=== PATIENT | male | born 1950 | race Caucasian/White ===

== ENCOUNTER 2018-07-22 15:38 | Inpatient (IN) | payer MEDICARE, BC ==
[~2018-07-22] VITALS: Ht 180.3 cm; Wt 116.2 kg
[2018-07-22 18:00] VITALS: BP 122/77
[2018-07-22] MEDS ORDERED: MOM 30ML SUSPENSION UDC PO PRN (19:15)
[2018-07-22 19:41] LABS: HEMATOCRIT 40.9 % (42.0-52.0); HEMOGLOBIN 13.2 g/dl (13.5-17.5); MEAN CORPUSCULAR HGB CONC 32.3 g/dl (32.0-36.5); MEAN CORPUSCULAR VOLUME 83.8 fl (80.0-96.0); PLATELET COUNT, AUTOMATED 196 10^3/uL (150-450); RED BLOOD COUNT 4.88 10^6/uL (4.30-6.10); WHITE BLOOD COUNT 7.6 10^3/uL (4.0-10.0)
[2018-07-22 19:52] LABS: INR 1.55; PROTHROMBIN TIME 18.8 SECONDS (12.1-14.4)
[2018-07-22 19:53] LABS: PARTIAL THROMBOPLASTIN TIME 33.2 SECONDS (25.4-37.6)
[2018-07-22 20:00] VITALS: BP 147/94
[2018-07-22 20:04] LABS: ALBUMIN 3.4 GM/DL (3.2-5.2); ALT/SGPT 38 U/L (12-78); BILIRUBIN,TOTAL 1.2 MG/DL (0.2-1.0); BLOOD UREA NITROGEN 24 MG/DL (7-18); CALCIUM LEVEL 8.6 MG/DL (8.8-10.2); CARBON DIOXIDE LEVEL 27 MEQ/L (21-32); CHLORIDE LEVEL 111 MEQ/L (98-107); CREATININE FOR GFR 1.23 MG/DL (0.70-1.30); GLOMERULAR FILTRATION RATE > 60.0 (>49); GLUCOSE, FASTING 178 MG/DL (70-100); POTASSIUM SERUM 4.1 MEQ/L (3.5-5.1); SODIUM LEVEL 145 MEQ/L (136-145); TOTAL PROTEIN 6.4 GM/DL (6.4-8.2)
[2018-07-22] MEDS ORDERED: SOTA80TA32 PO ×2 (20:04)
[2018-07-22] MEDS ORDERED: VASEGEL6 TOP (20:04)
[2018-07-22] MEDS ORDERED: ASPI-161 PO (20:04)
[2018-07-22] MEDS ORDERED: FLOM0.4C39 PO (20:04)
[2018-07-22] MEDS ORDERED: METF-882 PO (20:04)
[2018-07-22] MEDS ORDERED: VITMTA PO (20:04)
[2018-07-22] MEDS ORDERED: ATOR40TA75 PO (20:04)
[2018-07-22] MEDS ORDERED: PANT-23 PO (20:04)
[2018-07-22] MEDS ORDERED: DILT1CAP5 PO (20:04)
[2018-07-22] MEDS ORDERED: RAMI1CAP26 PO (20:04)
[2018-07-22] MEDS ORDERED: AMLO5TAB6 PO (20:04)
[2018-07-22] MEDS ORDERED: ADVI200T17 PO (20:04)
[2018-07-22] MEDS ORDERED: FURO40TA2 PO (20:04)
[2018-07-22] MEDS ORDERED: XARE20TA PO (20:04)
[2018-07-22] MEDS ORDERED: GLIP5TAB8 PO (20:04)
[2018-07-22] MEDS ORDERED: HEPARIN DRIP 25,000 UNITS in APPROPRIATE DILUENT 1 EA IV SCH ×2 (20:16→22:06)
[2018-07-22] MEDS ORDERED: HEPARIN SOD (PORCINE) 5000 UNITS/ML VIAL IV PRN ×2 (20:30→22:15)
[2018-07-22] MEDS ORDERED: HEPARIN SOD (PORCINE) 5000 UNITS/ML VIAL IV ONE (20:30)
--- NOTE | 2018-07-22 20:57 | HPEPDOC ---
General Date of Admission July 22, 2018 at 18:10 Date of Service: July 22, 2018 Attending Physician: MERNA MAZA MD Chief Complaint The patient is a 68-year-old male admitted with a reason for visit of [facility]. Source: Patient Exam Limitations: No limitations Timing/Duration: Day(s) Severity: Severe Associated Symptoms: Shortness of breath, Weakness, Hypotension, Dizziness History of Present Illness Patient is a 68-year-old male, past medical history significant for atrial fibrillation status post ablation 4/ 5 years ago, hypertension, hyperlipidemia, diabetes mellitus type 2, who presented to [facility] on account of shortness of breath and weakness. This morning patient had been walking his dogs when he said he started "huffing and puffing", and also was dizzy. He was not doing anything particularly strenuous. On return home he wanted to go to the drugstore to check his vitals with his girlfriend persuaded him to go to the emergency room instead. On arrival to the emergency room. Heart rate was 26 and patient was started on dobutamine drip. Prior to presentation to the ED, patient states a week ago he had been in atrial fibrillation with RVR for which he had seen his production utility worker and had been prescribed Cardizem in addition to the sotalol he was already on. He he thinks he may have taken his first dose last night. He is unsure. After his ablation years ago, patient reports this is the first occurrence of atrial fibrillation since. He denied any other symptoms with chest pain, chills, fever, abdominal pain, nausea, vomiting. He was transferred to this facility on account of sick sinus syndrome per evaluation by production utility worker and possible pac emaker placement. At time of evaluation his symptoms were resolved Home Medications Scheduled Amlodipine Besylate (Amlodipine Besylate) 5 Mg Tablet, 5 MG PO DAILY, (Reported) Aspirin (Aspirin EC) 81 Mg Tablet.dr, 81 MG PO DAILY, (Reported) Atorvastatin Calcium (Atorvastatin Calcium) 40 Mg Tablet, 40 MG PO QHS, (Reported) Diltiazem Hcl (Diltiazem 24Hr ER) 240 Mg Cap.sa.24h, 240 MG PO DAILY, (Reported) Glipizide (Glipizide) 5 Mg Tablet, 5 MG PO DAILY, (Reported) Metformin HCl (Metformin ER Osmotic) 1,000 Mg Tab.er.24, 1,000 MG PO QPM, (Reported) TAKES AT DINNERTIME Multivitamins (Thera M Plus Tablet) 1 Each Tablet, 1 TAB PO DAILY, (Reported) Pantoprazole Sodium (Pantoprazole Sodium) 40 Mg Tablet.dr, 40 MG PO DAILY, (Reported) Ramipril (Ramipril) 10 Mg Capsule, 20 MG PO DAILY, (Reported) Rivaroxaban (Xarelto) 20 Mg Tablet, 20 MG PO DAILY, (Reported) Sotalol HCl (Sotalol) 80 Mg Tablet, 160 MG PO DAILY, (Reported) Sotalol HCl (Sotalol) 80 Mg Tablet, 80 MG PO QHS, (Reported) Tamsulosin HCl (Flomax) 0.4 Mg Capsule, 0.4 MG PO DAILY, (Reported) Scheduled PRN Furosemide (Furosemide) 40 Mg Tablet, 40 MG PO Q2D PRN for SWELLING, (Reported) Ibuprofen/Diphenhydramine Cit (Advil Pm Caplet) 1 Each Tablet, 1 TAB PO QHS PRN for SLEEP OR PAIN, (Reported) Petrolatum,White (Vaseline) 18 Ml Jelly.ml., 1 DOSE TOP DAILY PRN for DRY SKIN, (Reported) Allergies Coded Allergies: Penicillins (Unverified Allergy, Unknown, 07/22/18) codeine (Unverified Adverse Reaction, Mild, nausea, 07/22/18) Past Medical History Medical History Hypertension Hyperlipidemia Ichthyosis Paroxysmal atrial fibrillation Benign prostate hypertrophy Gout GERD Obesity Surgical History A. fib ablation Coronary angiogram Testicular repair Thyroid biopsy Family History Father: Myocardial infarction. Mother: Breast cancer. Sibling: Prostrate cancer Social History * Smoker: Denies Alcohol: occationally Drugs: denies A-FIB/CHADSVASC A-FIB History Current/History of A-Fib/PAF?: Yes Current PO Anticoag Therapy: Yes Treatment Treatment ordered: Rivaroxaban Review of Systems Other systems A 10 point pertinent review of systems was completed, negative except as stated in the history of presenting illness. Physical Examination Other physical findings GENERAL: NAD SKIN : Dry, scaly skin HEENT: Atraumatic, normocephalic, PERRL, moist mucous membrane CARDIOVASCULAR: Regular rate and rhythm, bradycardic, S1S2, no JVD, no edema, distal pulses + and palpable RESP: CTAB, no accessory muscle use noted ABDOMEN: BS+ non distended non tender MS: no joint deformities NEURO: Alert and oriented x 3, CN2-12 grossly intact PSYCH: no anxiety or agitation, appropriate mood and affect. Vital Signs Vital Signs Date Time Temp Pulse Resp B/P (MAP) Pulse Ox O2 Delivery O2 Flow Rate FiO2 07/22/18 18:00 97.9 55 18 122/77 (92) 93 Laboratory Data Labs 24H Laboratory Tests 2 07/22/18 19:24: Nucleated Red Blood Cells % (auto) 0.0, Prothrombin Time 18.8H, Prothromb Time International Ratio 1.55, Activated Partial Thromboplast Time 33.2, Anion Gap 7L, Glomerular Filtration Rate > 60.0, Lactic Acid Level 1.5, Blood Urea Nitrogen 24H, Creatinine 1.23, Sodium Level 145, Potassium Level 4.1, Chloride Level 111H, Carbon Dioxide Level 27, Calcium Level 8.6L, Aspartate Amino Transf (AST/SGOT) 27, Alanine Aminotransferase (ALT/SGPT) 38, Alkaline Phosphatase 115, Total Bilirubin 1.2H, Total Protein 6.4, Albumin 3.4, Albumin/Globulin Ratio 1.13 CBC/BMP Laboratory Tests 07/22/18 19:24 Red Blood Count 4.88, Mean Corpuscular Volume 83.8, Mean Corpuscular Hemoglobin 27.0, Mean Corpuscular Hemoglobin Concent 32.3, Red Cell Distribution Width 14.2, Calcium Level 8.6 L, Aspartate Amino Transf (AST/SGOT) 27, Alanine Aminotransferase (ALT/SGPT) 38, Alkaline Phosphatase 115, Total Bilirubin 1.2 H, Total Protein 6.4, Albumin 3.4 Problems (1) Symptomatic bradycardia Problem Text: -Cardiology has been consulted for further evaluation for pacemaker placement -Hold Cardizem, sotalol, follow recommendations by cardiology -Continuous telemetry -Avoid hypotension -Patient had just one dose of Cardizem 240 mg last night of this morning. (2) Paroxysmal atrial fibrillation Problem Text: -Status post ablation 4/5 years ago -Anticoagulation therapy with heparin in the light of possible pacemaker placement tomorrow -Continue to hold all antiarrhythmics at this time -Heparin drip per protocol (3) Hypertension Problem Text: -Blood pressure is currently controlled -Hold antihypertensives in light of significant bradycardia Vital signs monitoring per unit protocol (4) Diabetes mellitus type 2 in obese Problem Text: -Diabetic diet and fingerstick checks prior to meals and at bedtime -Hold metformin (5) Ichthyosis Problem Text: -Continue when necessary Vaseline (6) DVT prophylaxis Problem Text: -Fully anticoagulated on heparin drip (7) Advance care planning Problem Text: -CODE STATUS is full resuscitation Plan / VTE VTE Prophylaxis Ordered?: Yes [employer] F[employer] July 22, 2018 20:57
[2018-07-22] MEDS ORDERED: ATROPINE SULF 1MG/10ML SYRINGE (J0461) IV PRN (21:00)
[2018-07-22] MEDS ORDERED: DEXTROSE 50% 50 ML SYRINGE IV PRN (21:00)
[2018-07-22] MEDS: DOCUSATE SODIUM 100 MG CAP PO SCH (21:00)
[2018-07-22] MEDS ORDERED: GLUCAGON FOR INJ 1 MG VIAL (J1610) SC PRN (21:00)
[2018-07-22] MEDS ORDERED: GLUCOSE 4 GM CHEW TABLET PO PRN (21:00)
[2018-07-22] MEDS: HumaLOG INSULIN (NovoLOG) PER UNIT SC SCH (21:00)
[2018-07-22] MEDS: ATORVASTATIN 20 MG TAB PO SCH (21:55)
[2018-07-22 23:59] VITALS: BP 111/66
[2018-07-23 04:00] VITALS: BP 126/80
[2018-07-23 05:23] LABS: BASO % 0.3 % (0.0-1.0); EOS # 0.1 10^3/uL (0.0-0.50); EOS % 1.2 % (0.0-3.0); HEMATOCRIT 38.7 % (42.0-52.0); HEMOGLOBIN 12.4 g/dl (13.5-17.5); LYMPH # 2.4 10^3/uL (1.5-4.5); LYMPH % 31.2 % (24.0-44.0); MEAN CORPUSCULAR HEMOGLOBIN 26.3 pg (27.0-33.0); MEAN CORPUSCULAR VOLUME 82.2 fl (80.0-96.0); MONO # 0.7 10^3/uL (0.0-0.8); MONO % 8.7 % (0.0-5.0); NEUTROPHILS # 4.5 10^3/uL (1.8-7.7); NEUTROPHILS % 58.5 % (36.0-66.0); PLATELET COUNT, AUTOMATED 190 10^3/uL (150-450); RED BLOOD COUNT 4.71 10^6/uL (4.30-6.10); WHITE BLOOD COUNT 7.6 10^3/uL (4.0-10.0)
[2018-07-23 05:52] LABS: ALBUMIN 3.1 GM/DL (3.2-5.2); ALT/SGPT 31 U/L (12-78); BILIRUBIN,TOTAL 1.4 MG/DL (0.2-1.0); BLOOD UREA NITROGEN 21 MG/DL (7-18); CALCIUM LEVEL 8.5 MG/DL (8.8-10.2); CARBON DIOXIDE LEVEL 26 MEQ/L (21-32); CHLORIDE LEVEL 110 MEQ/L (98-107); CREATININE FOR GFR 1.04 MG/DL (0.70-1.30); GLOMERULAR FILTRATION RATE > 60.0 (>49); GLUCOSE, FASTING 201 MG/DL (70-100); MAGNESIUM LEVEL 1.8 MG/DL (1.8-2.4); POTASSIUM SERUM 4.2 MEQ/L (3.5-5.1); SODIUM LEVEL 142 MEQ/L (136-145); TOTAL PROTEIN 6.5 GM/DL (6.4-8.2)
[2018-07-23] MEDS ORDERED: glipiZIDE (GLUCOTROL) 5 MG TAB PO SCH (07:30)
[2018-07-23 08:00] VITALS: BP 138/83
[2018-07-23] MEDS: RAMIPRIL 5 MG CAP PO SCH (09:00)
[2018-07-23] MEDS ORDERED: FUROSEMIDE 40 MG TAB PO PRN (09:00)
[2018-07-23] MEDS ORDERED: SLF 3 ML SYR IV PRN (09:00)
[2018-07-23] MEDS: DOCUSATE SODIUM 100 MG CAP PO SCH ×2 (09:00→21:12)
[2018-07-23] MEDS: HumaLOG INSULIN (NovoLOG) PER UNIT SC SCH ×4 (09:34→21:00)
[2018-07-23] MEDS: TAMSULOSIN 0.4 MG CAP PO SCH (09:35)
[2018-07-23] MEDS: amLODIPine 5 MG TAB PO SCH (09:37)
[2018-07-23] MEDS: MULTIVITAMINS/MINERALS THERAP 1 TAB PO SCH (09:38)
[2018-07-23] MEDS ORDERED: ENOXAPARIN 120 MG/0.8 ML SYR (J1650) SC SCH (10:00)
--- NOTE | 2018-07-23 10:07 | IPNPDOC ---
Subjective Date Seen The patient was seen on 07/23/18. Subjective Chief Complaint/HPI Patient comfortable wishes to go home. awaiting cardiology consultation. Offers no new complaints at the present time General: Denies: ROS Unobtainable, Chills, Night Sweats, Fatigue, Malaise, Normal Appetite, Other Symptoms Constitutional: Denies: Chills, Fever, Malaise, Night Sweats, Weakness, Fat igue, Weight Loss, Lethargy, Other Eyes: Denies: Pain, Vision change, Conjunctivae inflammation, Eyelid inflammation, Redness, Other ENT: Denies: Head Aches, Ear Pain, Dysphagia, Sinus Congestion, Post Nasal Drip, Sore Throat, Epistaxis, Other Symptoms Skin: Denies: Rash, Lesions, Jaundice, Bruising, Itching, Dry, Breakdown, Nail Changes, Other Pulmonary: Denies: Dyspnea, Cough, Pleuritic Chest Pain, Other Symptoms Cardiovascular: Denies: Chest Pain, Palpitations, Orthopnea, Paroxysmal Noc. Dyspnea, Edema, Lt Headedness, Other Symptoms Gastrointestinal: Denies: Nausea, Vomiting, Abdominal Pain, Diarrhea, Constipation, Melena, Hematochezia, Other Symptoms Genitourinary: Denies: Dysuria, Frequency, Incontinence, Hematuria, Retention, Other Symptoms Hematologic: Denies: Bruising, Bleeding Excessively, Petecchia, Purpura, Enlarged Lymph Nodes, Other Hematologic Endocrine: Denies: Polydipsia, Polyphagia, Polyuria, Heat Intolerance, Cold Intolerance, Other Endocrine Sx Musculoskeletal: Denies: Neck Pain, Back Pain, Shoulder Pain, Arm Pain, Hand Pain, Leg Pain, Foot Pain, Joint Pain, Muscle Pain, Spasms, Other Symptoms Neurological: Denies: Weakness, Numbness, Incoordination, Change in speech, Confusion, Seizures, Other Symptoms Psych: Denies: Mood Normal, Anxiety, Depression, Memory Issues, Thoughts of Self Harm, Anger, Thoughts of Harming Other, Other Psych Objective Physical Examination General Exam: Positive: Alert, Cooperative Eye Exam: Positive: PERRLA, Conjunctiva & lids normal ENT Exam: Positive: Atraumatic, Mucous membr. moist/pink Neck Exam: Positive: Supple Chest Exam: Positive: Clear to auscultation, Normal air movement Heart Exam: Positive: Rate Normal, Normal S2 Abdomen Exam: Positive: Normal bowel sounds Extremity Exam: Positive: Normal pulses Skin Exam: Positive: Nl turgor and temperature Neuro Exam: Positive: Normal Speech, Cranial Nerves 3-12 NL Psych Exam: Positive: Mental status NL, Mood NL Assessment /Plan Problems (1) Symptomatic bradycardia Problem Text: -Cardiology has been consulted for further evaluation for pacemaker placement -Hold Cardizem, sotalol, follow recommendations by cardiology -Continuous telemetry -DC Lovenox ,start apaxiban -Patient had just one dose of Cardizem 240 mg last night of this morning. -Discussed with Dr. huitron. He will see the patient this evening. Further management depends on recommendation from cardiology (2) Paroxysmal atrial fibrillation Problem Text: -Status post ablation 4/5 years ago -awaiting cardio input, patient is in normal sinus rhythm at 60-65/m The coagulation with apraxiban and has been started (3) Hypertension Problem Text: -Blood pressure is currently controlled -Hold antihypertensives in light of significant bradycardia Vital signs monitoring per unit protocol (4) Diabetes mellitus type 2 in obese Problem Text: -Diabetic diet and fingerstick checks prior to meals and at bedtime -Hold metformin (5) Ichthyosis Problem Text: -Continue when necessary Vaseline (6) DVT prophylaxis Problem Text: (7) Advance care planning Problem Text: -CODE STATUS is full resuscitation Plan/VTE VTE Prophylaxis Ordered?: Yes VS, I&O, 24H, Fishbone Vital Signs/I&O Vital Signs Date Time Temp Pulse Resp B/P (MAP) Pulse Ox O2 Delivery O2 Flow Rate FiO2 07/23/18 09:37 64 138/83 07/23/18 08:00 97.9 20 94 I&O- Last 24 Hours up to 6 AM 07/23/18 06:00 Intake Total 440 ml Output Total 300 ml Balance 140 ml Laboratory Data 24H LABS Laboratory Tests 2 07/22/18 19:24: Nucleated Red Blood Cells % (auto) 0.0, Prothrombin Time 18.8H, Prothromb Time International Ratio 1.55, Activated Partial Thromboplast Time 33.2, Anion Gap 7L, Glomerular Filtration Rate > 60.0, Lactic Acid Level 1.5, Blood Urea Nitrogen 24H, Creatinine 1.23, Sodium Level 145, Potassium Level 4.1, Chloride Level 111H, Carbon Dioxide Level 27, Calcium Level 8.6L, Aspartate Amino Transf (AST/SGOT) 27, Alanine Aminotransferase (ALT/SGPT) 38, Alkaline Phosphatase 115, Total Bilirubin 1.2H, Total Protein 6.4, Albumin 3.4, Albumin/Globulin Ratio 1.13 07/23/18 04:49: Nucleated Red Blood Cells % (auto) 0.0, Anion Gap 6L, Glomerular Filtration Rate > 60.0, Blood Urea Nitrogen 21H, Creatinine 1.04, Sodium Level 142, Potassium Level 4.2, Chloride Level 110H, Carbon Dioxide Level 26, Calcium Level 8.5L, Aspartate Amino Transf (AST/SGOT) 39H, Alanine Aminotransferase (ALT/SGPT) 31, Alkaline Phosphatase 108, Total Bilirubin 1.4H, Total Protein 6.5, Albumin 3.1L, Albumin/Globulin Ratio 0.91L, Immature Granulocyte % (Auto) 0.1, White Blood Count 7.6, Red Blood Count 4.71, Hemoglobin 12.4L, Hematocrit 38.7L, Mean Corpuscular Volume 82.2, Mean Corpuscular Hemoglobin 26.3L, Mean Corpuscular Hemoglobin Concent 32.0, Red Cell Distribution Width 13.9, Platelet Count 190, Neutrophils (%) (Auto) 58.5, Lymphocytes (%) (Auto) 31.2, Monocytes (%) (Auto) 8.7H, Eosinophils (%) (Auto) 1.2, Basophils (%) (Auto) 0.3, Neutrophils # (Auto) 4.5, Lymphocytes # (Auto) 2.4, Monocytes # (Auto) 0.7, Eosinophils # (Auto) 0.1, Basophils # (Auto) 0.0, Magnesium Level 1.8 CBC/BMP Laboratory Tests 07/22/18 19:24 Red Blood Count 4.88, Mean Corpuscular Volume 83.8, Mean Corpuscular Hemoglobin 27.0, Mean Corpuscular Hemoglobin Concent 32.3, Red Cell Distribution Width 14.2, Calcium Level 8.6 L, Aspartate Amino Transf (AST/SGOT) 27, Alanine Aminotransferase (ALT/SGPT) 38, Alkaline Phosphatase 115, Total Bilirubin 1.2 H, Total Protein 6.4, Albumin 3.4 07/23/18 04:49 Red Blood Count 4.71, Mean Corpuscular Volume 82.2, Mean Corpuscular Hemoglobin 26.3 L, Mean Corpuscular Hemoglobin Concent 32.0, Red Cell Distribution Width 13.9, Calcium Level 8.5 L, Aspartate Amino Transf (AST/SGOT) 39 H, Alanine Aminotransferase (ALT/SGPT) 31, Alkaline Phosphatase 108, Total Bilirubin 1.4 H, Total Protein 6.5, Albumin 3.1 L, Neutrophils (%) (Auto) 58.5, Lymphocytes (%) (Auto) 31.2, Monocytes (%) (Auto) 8.7 H, Eosinophils (%) (Auto) 1.2, Basophils (%) (Auto) 0.3, Neutrophils # (Auto) 4.5, Lymphocytes # (Auto) 2.4, Monocytes # (Auto) 0.7, Eosinophils # (Auto) 0.1, Basophils # (Auto) 0.0 PAYTON QUINTERO MD July 23, 2018 10:06
[2018-07-23 12:00] VITALS: BP 141/90
[2018-07-23] MEDS: SLF 3 ML SYR IV SCH ×2 (14:00→21:12)
[2018-07-23 16:00] VITALS: BP 143/93
[2018-07-23] MEDS ORDERED: RIVAROXABAN 20 MG TAB (XARELTO) PO SCH (18:00)
[2018-07-23] MEDS ORDERED: metFORMIN XR 500MG TAB *GLUCOPHAGE XR PO SCH (18:00)
[2018-07-23 20:00] VITALS: BP 140/92
--- NOTE | 2018-07-23 20:03 | CR ---
DATE OF CONSULTATION: 07/23/2018 INDICATION: Paroxysmal atrial fibrillation, bradycardia. REFERRING PHYSICIAN: Dr. Aaron Marroquin HISTORY OF PRESENT ILLNESS Mr. Dumont is not previously known to me. He is a 68-year-old man who actually recently moved to our area. He previously resided in [place], [place]. He reports a history of paroxysmal atrial fibrillation going back several years. He underwent ablation by Dr. Harjeet Celestin in [place] approximately 5 years ago. Since the ablation he was maintained on sotalol twice a day for several years without trouble. In the last several months though he had several relapses. His relapses were not overly symptomatic, he just fell little more tired and a little more short of breath. He actually was seen by Dr. Celestin a week ago. During the visit, he apparently was found to be in atrial fibrillation and the dose of sotalol was increased from 80 mg twice a day to 120 mg twice a day (actually the patient was supposed to take 120 mg twice a day, even prior to the visit but by mistake he was taking just 80 twice a day) and Cardizem CD 240 mg was added. For technical reasons, he did not take first dose of Cardizem until last Sunday, actually 6 days after he saw his supervisor composing room. The following morning though he started feeling unwell. He was lightheaded, was more short of breath and on insistence of his girlfriend actually came to emergency room in [place]. When he presented there is heart rate was initially documented as 42 beats per minute. I assume it was sinus bradycardia. Then he had a single heart rate documented as 28 beats per minute. Unfortunately, no strips were sent but the subsequent heart rate was already better again in 40s. There is an single ECG from 12:37 yesterday that reveals presence of sinus bradycardia with ventricular rate 49 beats per minute, first degree AV block and right bundle branch block. Because of his bradycardia, he was briefly given a bolus of fluids, even though he was never hypotensive and there was a plan to start on dobutamine. From the available documentation it is not completely clear to me whether dobutamine was ever started on not, but the arrangements were made for him to transfer to [facility]. On his arrival here he was in sinus rhythm and has been monitored since without any rate controlling medications. He has been maintaining sinus rhythm with heart rate usually around 60 even though at night he had some episodes of sinus bradycardia around 40 beats per minute. Today he tells me he is feeling better. He has not had any symptoms at all. The patient denies any history of coronary artery disease or congestive heart failure. PAST MEDICAL HISTORY 1. Paroxysmal atrial fibrillation as above. He was not chronically anticoagulated and started Xarelto only about a week ago. 2. Type 2 diabetes. 3. Dyslipidemia. 4. Hypertension. 5. Gout. 6. BPH. 7. Chronic renal insufficiency, stage III. 8. Obesity. 9. No documented history of obstructive sleep apnea. PAST SURGICAL HISTORY: Positive for atrial fibrillation ablation. FAMILY HISTORY: Father in his 70s from myocardial infarction. His mother from breast cancer. 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 His not too long ago from stroke related to atrial fibrillation. He does not smoke, fairly minimal alcohol consumption. ALLERGIES: CODEINE and PENICILLIN. OUTPATIENT MEDICATIONS Flomax 0.4 a day, glipizide 5 a day, aspirin 81 a day, Cardizem CD 240 mg single dose administered, ramipril 20 mg a day, sotalol 120 mg twice a day, allopurinol 100 mg a day, amlodipine 5 mg a day, atorvastatin 40 mg a day, furosemide 40 mg as needed for edema, metformin 1 gram a day and pantoprazole 40 mg daily. REVIEW OF SYSTEMS: He denies any history of syncope. He denies any history of chest pain. He does have exertional dyspnea that is probably [place] Heart Association class II. No peripheral edema as a rule and when he does have one he responds rapidly to diuretics. The rest of review of system is negative or not relevant. PHYSICAL EXAMINATION: On the physical examination, Mr. Dumont is a 68-hour-old man who appears approximately his age. He is laying comfortably in PCU bed alert and oriented, appropriate. No distress. Last vital signs: Blood pressure 143/93, heart rate 67, afebrile. Saturation 95% on room air. Weight 118 kg. His JVP is not high. I do not appreciate carotid bruit. Lungs are clear to auscultation. Heart: Exam reveals muffled heart sound corresponding to his obesity, but I do not appreciate any gallop, rub or murmur. There is a widely splitting second heart sound consistent with likely ongoing right bundle branch block. Abdomen is obese, soft, nontender. No hepatosplenomegaly is appreciated. Extremities are free of edema. Peripheral pulses are palpable bilaterally. No skin lesions. Neurologically he is intact. LABORATORY As of this morning: Sodium 142, potassium 4.2, BUN 21, creatinine 1.0, glucose 201, bilirubin 1.4, otherwise LFTs are normal. CBC is normal. Hemoglobin 12.4, hematocrit 38, platelet count 190,000. TSH was obtained in [facility] and was normal. There is no ECG performed in our institution. Chest x-ray from [facility] was reported as unremarkable. ASSESSMENT/PLAN Mr. Dumont is a 68-year-old man with diabetes, hypertension and dyslipidemia who has a remote history of atrial fibrillation ablation who was chronically maintained on sotalol. He was supposed to take 120 twice a day, but by mistake was taking only 80 twice a day. Last Sunday the dose was increased to 120 twice a day because he was in atrial fibrillation and he was also started on Xarelto. He took a single dose of Cardizem extended release that led to development of symptomatic sinus bradycardia. At this point I believe we can leave him without medication overnight. I think it would be easiest to give him just metoprolol and I will tentatively start it tomorrow morning. If he has relapses of atrial fibrillation we can add additional antiarrhythmics depending on his condition. I will obtain records from [place] before deciding on long-term management. I do not see any convincing evidence for sick sinus syndrome at this point and I do not believe that the pacemaker placement is indicated as yet. I will plan to keep followup with him on outpatient basis. I stressed the importance of chronic anticoagulation and explained to the patient that the most common way how people with a a-fib can pass away is from massive stroke. Unfortunately, he learned a hard lesson because that is how his . I ordered an ECG for tomorrow morning but provided he will be able to ambulate on telemetry I think he can be discharged home tomorrow afternoon.
[2018-07-23] MEDS: ATORVASTATIN 20 MG TAB PO SCH (21:12)
[2018-07-23 23:59] VITALS: BP 143/87
[2018-07-24 04:00] VITALS: BP 130/85
[2018-07-24] MEDS: SLF 3 ML SYR IV SCH (05:11)
[2018-07-24 06:13] LABS: BASO % 0.3 % (0.0-1.0); EOS # 0.1 10^3/uL (0.0-0.50); EOS % 1.4 % (0.0-3.0); HEMATOCRIT 38.1 % (42.0-52.0); HEMOGLOBIN 12.5 g/dl (13.5-17.5); LYMPH # 2.5 10^3/uL (1.5-4.5); MEAN CORPUSCULAR HEMOGLOBIN 26.8 pg (27.0-33.0); MEAN CORPUSCULAR HGB CONC 32.8 g/dl (32.0-36.5); MEAN CORPUSCULAR VOLUME 81.6 fl (80.0-96.0); MONO # 0.6 10^3/uL (0.0-0.8); MONO % 8.5 % (0.0-5.0); NEUTROPHILS % 55.5 % (36.0-66.0); PLATELET COUNT, AUTOMATED 201 10^3/uL (150-450); RED BLOOD COUNT 4.67 10^6/uL (4.30-6.10); WHITE BLOOD COUNT 7.2 10^3/uL (4.0-10.0)
--- NOTE | 2018-07-24 06:19 | ECHO ---
DATE OF STUDY: 07/23/2018 REFERRING PHYSICIAN: Dr. Sia De La Paz INDICATION: Cardiac dysrhythmia unspecified. HEIGHT: 180 cm. WEIGHT: 117 kg. 2-D MEASUREMENTS: Ventricular septum: 1.12 cm Posterior wall: 0.94 cm Left ventricle diastole: 4.8 cm Aortic annulus: 2.0 cm Left atrium: 4.6 cm Inferior vena cava: 2.2 cm with normal respiratory variation DOPPLER MEASUREMENTS: Aortic valve velocity: 153 cm/sec LVOT velocity: 102 cm/sec LVOT VTI: 20.0 cm Mitral E velocity: 93.8 cm/sec Mitral A velocity: 50.1 cm/sec Mitral deceleration time: 180 ms Very mild tricuspid regurgitation Pulmonary artery systolic pressure 24 mmHg MITRAL ANNULAR TISSUE DOPPLER: E prime septal: 8.5 cm/sec E prime lateral: 8.8 cm/sec DESCRIPTION: The rhythm was sunus. Image quality was fair. This was a 2-D, M-mode, color flow Doppler and pulse wave Doppler examination and included mitral annular tissue Doppler. No pericardial effusion. CONCLUSIONS: 1. Normal left ventricle internal dimensions and wall thickness. Normal regional LV wall motion and wall thickening. Normal LV systolic function. LVEF 65% by visual estimate. Normal LV diastolic function. 2. Mild aortic valve sclerosis with a 3-cuspid aortic valve. No aortic regurgitation. 3. Mild left atrial dilatation. 4. Otherwise normal appearing echocardiogram Doppler findings.
[2018-07-24 06:31] LABS: BLOOD UREA NITROGEN 16 MG/DL (7-18); CALCIUM LEVEL 8.3 MG/DL (8.8-10.2); CARBON DIOXIDE LEVEL 27 MEQ/L (21-32); CHLORIDE LEVEL 109 MEQ/L (98-107); CREATININE FOR GFR 0.94 MG/DL (0.70-1.30); GLOMERULAR FILTRATION RATE > 60.0 (>49); GLUCOSE, FASTING 167 MG/DL (70-100); POTASSIUM SERUM 3.8 MEQ/L (3.5-5.1); SODIUM LEVEL 142 MEQ/L (136-145)
[2018-07-24 08:00] VITALS: BP 156/92
[2018-07-24] MEDS: MULTIVITAMINS/MINERALS THERAP 1 TAB PO SCH (08:07)
[2018-07-24] MEDS: DOCUSATE SODIUM 100 MG CAP PO SCH (08:07)
[2018-07-24] MEDS: RAMIPRIL 5 MG CAP PO SCH (08:08)
[2018-07-24] MEDS: TAMSULOSIN 0.4 MG CAP PO SCH (08:08)
[2018-07-24] MEDS: amLODIPine 5 MG TAB PO SCH (08:09)
[2018-07-24] MEDS: HumaLOG INSULIN (NovoLOG) PER UNIT SC SCH ×2 (08:10→12:08)
--- NOTE | 2018-07-24 08:38 | IPN ---
DATE: Mr. Dumont had a good night. He did not have any arrhythmias and his heart rate is gradually increasing, currently in 70s. He is afebrile. Blood pressure this morning was 160/91. Saturation 93%. Weight is 116 kg. He is alert and oriented and appropriate. His lungs are clear. Heart exam reveals regular rhythm without gallop, rub or murmur. Abdomen is soft and there is no edema. He INVESTIGATIONS/LABORATORY DATA: He had an echocardiogram yesterday that revealed preserved left ventricular systolic function with estimated ejection fraction about 65%, minimal aortic sclerosis but no significant valvular abnormalities otherwise. His laboratories remain essentially normal. Hemoglobin is 12.5, hematocrit 38, platelet count 201,000. Basic metabolic panel showed potassium 3.8, BUN 16, creatinine 0.9 and glucose 167 this morning. ASSESSMENT/PLAN: Mr. Dumont is a 68-year-old man who has hypertension, diabetes and dyslipidemia, but no history of coronary artery disease or congestive heart failure. He carries a diagnosis of atrial fibrillation and underwent ablation in [place] approximately 5 years ago. He presented to [facility] with severe bradycardia after Cardizem was added to his chronic sotalol. After reviewing the records, I did not see any evidence that he had high degree AV block. I it looks like all his symptoms were related to sinus bradycardia but nevertheless, I think it is probably reasonable to discontinue his chronic sotalol, as it really was not effective and reports several relapses recently. At this time, I am going to give him just low-dose beta elin and we will see him in followup in the office. I will contact his pipe fittings molder today and get his records. I tentatively assume that we will switch him to combination of beta-elin and flecainide or propafenone or even consider redo ablation. He does not plan to return to [facility] and will reside locally and consequently we will set him up to see an pipe fittings molder because most likely a redo ablation is his best option. After he receives his morning beta-elin and ambulates, provided there will be no complications, he can be discharged home today.
[2018-07-24] MEDS ORDERED: METOPROLOL TART 25 MG TABLET PO SCH (09:00)
[2018-07-24 09:35] VITALS: BP 152/93
--- NOTE | 2018-07-24 09:46 | ECGEPIP ---
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 Electronically Signed on 07-24-2018 9:46:02 EDT by Mike Giordano
[2018-07-24] MEDS ORDERED: METO1TAB87 PO (10:02)
--- NOTE | 2018-07-24 10:51 | DS.PDOC ---
Discharge Summary General Date of Admission July 22, 2018 at 18:10 Date of Discharge July 24 Attending Physician: PAYTON QUINTERO MD Discharge Summary PROCEDURES PERFORMED DURING STAY: None. ADMITTING DIAGNOSES: 1. Symptomatic bradycardia. DISCHARGE DIAGNOSES: 1. Symptomatic Bradycardia secondary to meds . COMPLICATIONS/CHIEF COMPLAINT: SSS. HISTORY OF PRESENT ILLNESS: Patient is a 68-year-old male, past medical history significant for atrial fibrillation status post ablation 4/ 5 years ago, hypertension, hyperlipidemia, diabetes mellitus type 2, who presented to [facility] on account of shortness of breath and weakness. This morning patient had been walking his dogs when he said he started "huffing and puffing", and also was dizzy. He was not doing anything particularly strenuous. On return home he wanted to go to the drugstore to check his vitals with his girlfriend persuaded him to go to the emergency room instead. On arrival to the emergency room. Heart rate was 26 and patient was started on dobutamine drip. 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 He he thinks he may have taken his first dose last night. He is unsure. After his ablation years ago, patient reports this is the first occurrence of atrial fibrillation since. He denied any other symptoms with chest pain, chills, fever, abdominal pain, nausea, vomiting. He was transferred to this facility on account of sick sinus syndrome per evaluation by manager employee benefits and possible pacemaker placement. At time of evaluation his symptoms were resolved. HOSPITAL COURSE: Patient admitted with the symptomatic bradycardia. He had taken one dose of Cardizem 240 mg by mouth 1, patient was also currently taking sotalol as previously and had developed side effect of symptomatic bradycardia secondary to metastases. Both Cardizem and sotalol were DC'd while he was in the hospital, his heart rate progressively improved. Patient was seen seen by Dr. huitron, and recommend to place him on small dose metoprolol and DC sotalol and Cardizem and continue the apaxiban been in follow-up with him as an outpatient. Patient is clinically stable, asymptomatic, ambulatory and can be discharged home on the metoprolol and follow with the cardiology as per recommendations. DISCHARGE MEDICATIONS: Please see below. ALLERGIES: Please see below. PHYSICAL EXAMINATION ON DISCHARGE: VITAL SIGNS: Please see below. GENERAL: Normal HEENT: PERRLA NECK: Supple CARDIOVASCULAR EXAMINATION: S1, S2, regular RESPIRATORY EXAMINATION: Clear to A&P ABDOMINAL EXAMINATION: Benign EXTREMITIES: No clubbing, cyanosis, edema SKIN: Normal NEUROLOGICAL EXAMINATION: No motor or focal sensory deficit PSYCHIATRIC EXAMINATION: Normal LABORATORY DATA: Please see below. IMAGING: As per EMR PROGNOSIS: Good ACTIVITY: As tolerated. DIET: As tolerated DISCHARGE PLAN: Follow with cardiology in the one week DISPOSITION: . Home DISCHARGE INSTRUCTIONS: 1. As above. ITEMS TO FOLLOWUP ON ON OUTPATIENT: 1. As above. DISCHARGE CONDITION: Stable. TIME SPENT ON DISCHARGE: 32 minutes. Vital Signs/I&Os Vital Signs Date Time Temp Pulse Resp B/P (MAP) Pulse Ox O2 Delivery O2 Flow Rate FiO2 07/24/18 09:35 72 152/93 07/24/18 08:00 98.0 17 92 I&O- Last 24 Hours up to 6 AM 07/24/18 06:00 Intake Total 600 ml Output Total 900 ml Balance -300 ml Laboratory Data Labs 24H Laboratory Tests 2 07/23/18 11:40: Bedside Glucose (Misc Panel) 219H 07/23/18 17:11: Bedside Glucose (Misc Panel) 110 07/23/18 20:52: Bedside Glucose (Misc Panel) 210H 07/24/18 05:25: Immature Granulocyte % (Auto) 0.3, White Blood Count 7.2, Red Blood Count 4.67, Hemoglobin 12.5L, Hematocrit 38.1L, Mean Corpuscular Volume 81.6, Mean Cor puscular Hemoglobin 26.8L, Mean Corpuscular Hemoglobin Concent 32.8, Red Cell Distribution Width 13.8, Platelet Count 201, Neutrophils (%) (Auto) 55.5, Lymphocytes (%) (Auto) 34.0, Monocytes (%) (Auto) 8.5H, Eosinophils (%) (Auto) 1.4, Basophils (%) (Auto) 0.3, Neutrophils # (Auto) 4.0, Lymphocytes # (Auto) 2.5, Monocytes # (Auto) 0.6, Eosinophils # (Auto) 0.1, Basophils # (Auto) 0.0, Nucleated Red Blood Cells % (auto) 0.0, Anion Gap 6L, Glomerular Filtration Rate > 60.0, Blood Urea Nitrogen 16, Creatinine 0.94, Sodium Level 142, Potassium Level 3.8, Chloride Level 109H, Carbon Dioxide Level 27, Calcium Level 8.3L CBC/BMP Laboratory Tests 07/24/18 05:25 Red Blood Count 4.67, Mean Corpuscular Volume 81.6, Mean Corpuscular Hemoglobin 26.8 L, Mean Corpuscular Hemoglobin Concent 32.8, Red Cell Distribution Width 13.8, Neutrophils (%) (Auto) 55.5, Lymphocytes (%) (Auto) 34.0, Monocytes (%) (Auto) 8.5 H, Eosinophils (%) (Auto) 1.4, Basophils (%) (Auto) 0.3, Neutrophils # (Auto) 4.0, Lymphocytes # (Auto) 2.5, Monocytes # (Auto) 0.6, Eosinophils # (Auto) 0.1, Basophils # (Auto) 0.0, Calcium Level 8.3 L FSBS Laboratory Tests Test 07/23/18 11:40 07/23/18 17:11 07/23/18 20:52 Range/Units Bedside Glucose (Misc Panel) 219 110 210 80-115 MG/DL Discharge Medications Scheduled Amlodipine Besylate (Amlodipine Besylate) 5 Mg Tablet, 5 MG PO DAILY, (Reported) Aspirin (Aspirin EC) 81 Mg Tablet.dr, 81 MG PO DAILY, (Reported) Atorvastatin Calcium (Atorvastatin Calcium) 40 Mg Tablet, 40 MG PO QHS, (Reported) Glipizide (Glipizide) 5 Mg Tablet, 5 MG PO DAILY, (Reported) Metformin HCl (Metformin ER Osmotic) 1,000 Mg Tab.er.24, 1,000 MG PO QPM, (Reported) TAKES AT DINNERTIME Metoprolol Tartrate (Metoprolol Tartrate) 25 Mg Tablet, 25 MG PO BID Multivitamins (Thera M Plus Tablet) 1 Each Tablet, 1 TAB PO DAILY, (Reported) Pantoprazole Sodium (Pantoprazole Sodium) 40 Mg Tablet.dr, 40 MG PO DAILY, (Reported) Ramipril (Ramipril) 10 Mg Capsule, 20 MG PO DAILY, (Reported) Rivaroxaban (Xarelto) 20 Mg Tablet, 20 MG PO DAILY, (Reported) Tamsulosin HCl (Flomax) 0.4 Mg Capsule, 0.4 MG PO DAILY, (Reported) Scheduled PRN Furosemide (Furosemide) 40 Mg Tablet, 40 MG PO Q2D PRN for SWELLING, (Reported) Petrolatum,White (Vaseline) 18 Ml Jelly.ml., 1 DOSE TOP DAILY PRN for DRY SKIN, (Reported) Allergies Coded Allergies: Penicillins (Unverified Allergy, Unknown, 07/22/18) codeine (Unverified Adverse Reaction, Mild, nausea, 07/22/18) PAYTON QUINTERO MD July 24, 2018 10:51
== END 2018-07-24 12:30 | disposition home or self-care (01) | DRG 310 ==
LOC: M PCU 18:10
PROVIDERS: ADMIT Student in an Organized Health Care Education/Training Program; ATTEND Internal Medicine
DX: R00.1 Bradycardia, unspecified (principal); I48.0 Paroxysmal atrial fibrillation; I12.9 Hypertensive chronic kidney disease with stage 1 through stage 4 chronic kidney disease, or unspecified chronic kidney disease; E78.5 Hyperlipidemia, unspecified; E11.9 Type 2 diabetes mellitus without complications; Z79.82 Long term (current) use of aspirin; Z79.899 Other long term (current) drug therapy; Z88.0 Allergy status to penicillin; Z88.5 Allergy status to narcotic agent; E66.9 Obesity, unspecified; M10.9 Gout, unspecified; N40.0 Benign prostatic hyperplasia without lower urinary tract symptoms; N18.3 Chronic kidney disease, stage 3 (moderate)

== ENCOUNTER → 2019-10-03 | Outpatient (CLI) | payer MEDICARE, BC ==
[~2019-10-03] MED LIST: ADVI200T17 PO; AMLO1TAB24 PO; ASPI-161 PO; ATOR40TA75 PO; DILT1CAP5 PO; FLOM0.4C39 PO; FURO40TA2 PO; GLIP5TAB8 PO; METF-882 PO; METO1TAB87 PO; PANT-23 PO; RAMI1CAP26 PO; SOTA80TA32 PO; VASEGEL6 TOP; VITMTA PO; XARE20TA PO
--- NOTE | 2019-11-07 15:26 | SLEEPCENT ---
DATE: 10/03/2019 ORDERED BY: RANDOLPH Hernandez Nocturnal polysomnography was performed evaluation of sleep physiology in this patient with a history of excessive somnolence, snoring, and nonrestorative sleep. There was 7 hours and 23 minutes of data reviewed. There were 303 minutes of sleep identified. Sleep latency was short at 11.5 minutes. REM latency was short at 77 minutes. Sleep architecture was fairly good with two REM cycles. There were periods of wake late in the study resulting in a reduced sleep efficiency of 69.3%. The patients electrocardiogram showed atrial fibrillation with possibly a paced rhythm. Average heart rate was 82 beats per minute. EEG showed reasonably normal waveforms for wake and sleep. Some minor alpha intrusion was appreciated in the non-REM stages. There were only 15 respiratory events identified of 10 seconds in duration or greater for an apnea-hypopnea index of 3. The events that were seen were more frequent in the supine posture and occurred early in the study. Arousals from respiratory events were only 0.8 times per hour and there were no oxygen desaturations below 90%. Limb leads were reasonably quiet. There was some snoring noted. IMPRESSION: Normal nocturnal polysomnography with snoring. RECOMMENDATIONS: The obstructive respiratory events seen early in the study were associated with supine posture and so sleep position retraining for avoidance of the supine posture may be helpful. CODY
== END ==
LOC: M SLEEP 20:00
PROVIDERS: ATTEND Nurse Practitioner Family
DX: R06.83 Snoring (principal)

== ENCOUNTER 2019-10-06 06:40 | Day surgery (SDC) | payer MEDICARE, BC ==
[2019-10-06] MEDS ORDERED: LIDOCAINE 2% 100MG/5ML SDV (FOR ANES.) ONE (06:49)
[2019-10-06] MEDS ORDERED: MIDAZOLAM INJ 2MG/2ML VIAL (J2250 PER 1MG) ONE (06:49)
[2019-10-06] MEDS ORDERED: propofoL 200 MG/20 ML VIAL ONE (06:49)
[2019-10-06] MEDS ORDERED: fentaNYL 100 MCG/2 ML INJECTION (J3010) ONE (06:49)
--- NOTE | 2019-11-19 13:36 | ECGEPIP ---
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
--- NOTE | 2019-11-19 13:38 | ECGEPIP ---
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
== END 2019-10-06 08:58 | disposition home or self-care (01) ==
LOC: M SDC 06:40
PROVIDERS: ATTEND Internal Medicine Cardiovascular Disease
DX: I48.91 Unspecified atrial fibrillation (principal); I10 Essential (primary) hypertension; E11.9 Type 2 diabetes mellitus without complications; E78.5 Hyperlipidemia, unspecified; K21.9 Gastro-esophageal reflux disease without esophagitis; M10.9 Gout, unspecified; N40.0 Benign prostatic hyperplasia without lower urinary tract symptoms; Z88.0 Allergy status to penicillin; Z79.01 Long term (current) use of anticoagulants; Z79.84 Long term (current) use of oral hypoglycemic drugs; Z79.899 Other long term (current) drug therapy
CPT/HCPCS: 92960; 93005; J2250; J3010

== ENCOUNTER → 2021-10-28 | Outpatient (REF) | payer MEDICARE, BC | LOC: M SFHCDERM 14:28 | PROVIDERS: ATTEND Nurse Practitioner Family | DX: C43.62 Malignant melanoma of left upper limb, including shoulder (principal) ==

== ENCOUNTER → 2021-11-10 | Outpatient (REF) | payer MEDICARE, BC | LOC: M SFHCDERM 17:36 | PROVIDERS: ATTEND Nurse Practitioner Family | DX: L85.9 Epidermal thickening, unspecified (principal) ==

== ENCOUNTER 2022-08-02 08:34 | Day surgery (SDC) | payer MEDICARE, BC ==
[~2022-08-02] VITALS: Ht 180.3 cm; Wt 97.1 kg
[~2022-08-02 08:34] MED LIST changes: +ALLO10TA PO; +ANAS1TAB2 PO; +D 1010004 PO; -DILT1CAP5 PO; +DILT240C41 PO; +FARX1TAB3 PO; +LISI10TA22 PO; +NS 1,000 ML IV ONE
[2022-08-02] MEDS ORDERED: propofoL 200 MG/20 ML VIAL As Ordered ONE (09:21)
[2022-08-02] MEDS ORDERED: fentaNYL 100 MCG/2 ML INJECTION As Ordered ONE (09:21)
[2022-08-02] MEDS ORDERED: ePHEDrine SULFATE 25 MG/5 ML(5MG/ML) SYRINGE As Ordered ONE (10:19)
[2022-08-02] MEDS ORDERED: PHENYLephrine 500MCG 5ML (100MCG/ML) SYRINGE As Ordered ONE (10:28)
[2022-08-02 10:41] VITALS: TEMP 97.5
[2022-08-02 10:58] VITALS: BP 138/84; O2SAT 95
== END 2022-08-02 11:25 | disposition home or self-care (01) ==
LOC: M OPP 08:34
PROVIDERS: ATTEND Internal Medicine Gastroenterology
DX: Z12.11 Encounter for screening for malignant neoplasm of colon (principal); K64.8 Other hemorrhoids; D17.5 Benign lipomatous neoplasm of intra-abdominal organs; K44.9 Diaphragmatic hernia without obstruction or gangrene; R12 Heartburn; K31.89 Other diseases of stomach and duodenum
CPT/HCPCS: 43239; 45378; 88305; J2370; J3010

== ENCOUNTER → 2023-11-29 | Outpatient (REF) | payer MEDICARE, BC ==
[~2023-11-29] MED LIST changes: -ASPI-161 PO; +ASPI-615 PO; +GLIP5TAB17 PO; -GLIP5TAB8 PO; -NS 1,000 ML IV ONE; +RAMI10CA64 PO; -RAMI1CAP26 PO
== END ==
LOC: M SFHCDERM 16:44
PROVIDERS: ATTEND Nurse Practitioner Family
DX: C44.311 Basal cell carcinoma of skin of nose (principal)

== ENCOUNTER → 2023-12-05 | Outpatient (CLI) | payer MEDICARE, BC | LOC: M RAD 07:40 | PROVIDERS: ATTEND Internal Medicine Pulmonary Disease | DX: R91.8 Other nonspecific abnormal finding of lung field (principal) ==